=== PATIENT | male | born 1975 | race Two or more races ===

== ENCOUNTER 2017-05-05 10:57 | Emergency (ER) | payer MEDICAID ==
[2017-05-05] MEDS ORDERED: LORazepam 2MG/ML-1ML VIAL IM ONE (11:45)
[2017-05-05] MEDS ORDERED: HALOPERIDOL LACTATE 5 MG/ML INJ VIAL IM ONE (11:45)
[2017-05-05] MEDS ORDERED: diphenhdrAMINE HCL 50 MG/1 ML VL IM ONE (11:45)
[2017-05-05 16:40] VITALS: BP 117/79
== END 2017-05-06 04:56 | disposition home or self-care (01) ==
LOC: ER 10:57
DX: F20.9 Schizophrenia, unspecified (principal); F31.9 Bipolar disorder, unspecified; F17.210 Nicotine dependence, cigarettes, uncomplicated; Z59.0 Homelessness
CPT/HCPCS: 36415; 80307; 80320; 96372; 99284; J2060

== ENCOUNTER 2018-03-17 17:45 | Emergency (ER) | payer MEDICAID ==
[~2018-03-17] VITALS: Ht 170.2 cm; Wt 78.0 kg
[2018-03-17 18:15] VITALS: BP 123/83
[2018-03-17] MEDS ORDERED: LORazepam 0.5 MG TAB PO ONE (19:30)
== END 2018-03-17 20:25 | disposition home or self-care (01) ==
LOC: ER 17:45
DX: F41.9 Anxiety disorder, unspecified (principal); F17.210 Nicotine dependence, cigarettes, uncomplicated; F12.10 Cannabis abuse, uncomplicated; F15.10 Other stimulant abuse, uncomplicated; F14.10 Cocaine abuse, uncomplicated